=== PATIENT | female | born 1990 | race Caucasian/White ===

== ENCOUNTER 2017-11-16 19:26 | Emergency (ER) | payer SELFPAY ==
[~2017-11-16] VITALS: Ht 175.3 cm; Wt 63.2 kg
[~2017-11-16 19:26] MED LIST: ANXIETY MED PO; IBUPROFEN800 MG PO; MOTRIN800 MG PO; NOHOMEMEDS; PAXIL20 MG PO; PRENATAL1 EACH PO; PROMETHAZINE12.5 M1 PO; TYLENOL/CODE1 TABLET PO; XANAX1 MG PO; ~No Medications
[2017-11-16 21:26] LABS: BASOPHIL (%) 0.3 % (0-1); EOSINOPHIL (%) 0.7 % (0-5); EOSINOPHIL COUNT 0.1 K/uL (0-0.3); HEMATOCRIT 37.6 % (36.0-46.0); IMMATURE GRANULOCYTE (%) 0.4 % (0.0-0.7); LYMPHOCYTE (%) 20.6 % (15-42); LYMPHOCYTE COUNT 2.2 K/uL (1.0-2.8); MCH 30.6 PG (29.0-34.0); MCHC 34.6 G/DL (30.0-36.0); MCV 88.5 FL (83-99); MONOCYTE COUNT 0.6 K/uL (0-0.8); NEUTROPHIL COUNT 7.7 K/uL (1.8-6.4); PLATELET COUNT 181 K/uL (156-360); RBC DIS.WIDTH-CV 12.5 % (11.8-14.6); RBC DIS.WIDTH-SD 40.6 % (39-53); RED BLOOD COUNT 4.25 M/uL (3.80-5.20); WHITE BLOOD COUNT 10.7 K/uL (4.1-10.2)
[2017-11-16 21:34] LABS: ALBUMIN 3.9 g/dL (3.2-4.8); CHLORIDE 106 mEq/L (99-109); POTASSIUM 3.7 mEq/L (3.7-5.4); SODIUM 138 mEq/L (136-147)
[2017-11-16 21:36] LABS: GLUCOSE 84 mg/dL (70-99); TOTAL PROTEIN 6.2 g/dL (6.4-8.3)
[2017-11-16 21:38] LABS: TOTAL BILIRUBIN 0.6 mg/dL (0.0-1.0)
[2017-11-16 21:40] LABS: ALKALINE PHOSPHATASE 47 IU/L (3-129); CREATININE 0.8 mg/dL (0.6-1.3); GFR ESTIMATE (CALCULATED) > 59 mL/min/
[2017-11-16 21:41] LABS: UREA NITROGEN (BUN) 13 mg/dL (9-23)
[2017-11-16 21:42] LABS: AST (GOT) 35 IU/L (2-34)
[2017-11-16 21:43] LABS: ALT (GPT) 63 IU/L (3-49)
[2017-11-16] MEDS ORDERED: PRENATAL 19 TA1 EACH PO (22:32)
[2017-11-16] MEDS ORDERED: REGLAN10 MG PO (22:32)
[2017-11-16 22:49] VITALS: BP 136/91
== END 2017-11-16 22:50 | disposition home or self-care (01) ==
LOC: EME → EDBD 19:26 → EME 19:26
PROVIDERS: Emergency Medicine
DX: O99.89 Other specified diseases and conditions complicating pregnancy, childbirth and the puerperium (principal); R07.9 Chest pain, unspecified; O99.511 Diseases of the respiratory system complicating pregnancy, first trimester; J45.909 Unspecified asthma, uncomplicated; O99.331 Smoking (tobacco) complicating pregnancy, first trimester; F17.200 Nicotine dependence, unspecified, uncomplicated; Z3A.08 8 weeks gestation of pregnancy
CPT/HCPCS: 71046; 80053; 85025; 85379; 93005; 99281; 99284; J7030